=== PATIENT | male | born 1960 | race Caucasian/White ===

== ENCOUNTER → 2017-01-20 | Outpatient (CLI) | payer BC ==
[2017-01-20 20:44] LABS: ALBUMIN 4.2 GM/DL (3.2-5.2); ALBUMIN/GLOBULIN RATIO 1.35 (1.00-1.93); ALKALINE PHOSPHATASE 101 U/L (45-117); ALT/SGPT 31 U/L (12-78); ANION GAP 9 MEQ/L (8-16); AST/SGOT 14 U/L (15-37); BILIRUBIN,TOTAL 0.4 MG/DL (0.2-1.0); BLOOD UREA NITROGEN 21 MG/DL (7-18); CALCIUM LEVEL 8.6 MG/DL (8.5-10.1); CARBON DIOXIDE LEVEL 24 MEQ/L (21-32); CHLORIDE LEVEL 111 MEQ/L (98-107); CREATININE FOR GFR 1.21 MG/DL (0.70-1.30); GLOMERULAR FILTRATION RATE > 60.0 (>56); GLUCOSE, FASTING 84 MG/DL (70-105); SODIUM LEVEL 144 MEQ/L (136-145); TOTAL PROTEIN 7.3 GM/DL (6.4-8.2)
[2017-01-20 20:55] LABS: BASO % 0.5 % (0.0-1.0); EOS # 0.2 K/mm3 (0.0-0.50); LARGE UNSTAINED CELL # 0.1 K/mm3 (0.0-0.4); LARGE UNSTAINED CELL % 1.1 % (0.0-4.0); LYMPH # 2.1 K/mm3 (1.5-4.5); LYMPH % 26.9 % (24.0-44.0); MEAN CORPUSCULAR HEMOGLOBIN 29.9 pg (27.0-33.0); MEAN CORPUSCULAR HGB CONC 33.6 g/dl (32.0-36.5); MONO # 0.4 K/mm3 (0.0-0.8); MONO % 5.2 % (0.0-5.0); NEUTROPHILS # 4.9 K/mm3 (1.8-7.7); NEUTROPHILS % 64.3 % (36.0-66.0); PLATELET COUNT, AUTOMATED 260 k/mm3 (150-450); RED CELL DISTRIBUTION WIDTH 13.5 % (11.5-14.5); WHITE BLOOD COUNT 7.6 K/mm3 (4.0-10.0)
[2017-01-20 21:33] LABS: ERYTHROCYTE SEDIMENTATION RATE 2 mm/hr (0-20)
[2017-01-23 00:06] LABS: Lyme Disease IgG/IgM Antibodie <0.91 ISR (0.00-0.90); Lyme Disease IgM Ab Quantitati <0.80 index (0.00-0.79)
== END ==
LOC: M ADAMS 18:58
PROVIDERS: ATTEND Physician Assistant
DX: R53.83 Other fatigue (principal)

== ENCOUNTER → 2019-03-07 | Outpatient (CLI) | payer BC ==
[~2019-03-07] MED LIST: ACET650S3 PO; ASPI81CH33 PO; IBUP200C25 PO
[2019-03-07 12:52] LABS: HEMATOCRIT 43.5 % (42.0-52.0); HEMOGLOBIN 14.8 g/dl (13.5-17.5); MEAN CORPUSCULAR HEMOGLOBIN 30.6 pg (27.0-33.0); MEAN CORPUSCULAR VOLUME 89.9 fl (80.0-96.0); PLATELET COUNT, AUTOMATED 279 10^3/uL (150-450); RED BLOOD COUNT 4.84 10^6/uL (4.30-6.10); WHITE BLOOD COUNT 6.1 10^3/uL (4.0-10.0)
[2019-03-07 13:03] LABS: INR 1.1; PROTHROMBIN TIME 13.9 SECONDS (11.8-14.0)
[2019-03-07 13:12] LABS: ALBUMIN 4.2 GM/DL (3.2-5.2); ALT/SGPT 17 U/L (12-78); BILIRUBIN,TOTAL 0.8 MG/DL (0.2-1.0); BLOOD UREA NITROGEN 23 MG/DL (7-18); CALCIUM LEVEL 9.5 MG/DL (8.5-10.1); CARBON DIOXIDE LEVEL 28 MEQ/L (21-32); CHLORIDE LEVEL 105 MEQ/L (98-107); GLOMERULAR FILTRATION RATE > 60.0 (>56); GLUCOSE, FASTING 79 MG/DL (70-100); POTASSIUM SERUM 4.9 MEQ/L (3.5-5.1); SODIUM LEVEL 140 MEQ/L (136-145); TOTAL PROTEIN 7.3 GM/DL (6.4-8.2)
[2019-03-07 13:32] LABS: ERYTHROCYTE SEDIMENTATION RATE 4 mm/hr (0-20)
--- NOTE | 2019-03-08 05:36 | REP ---
Clinical: Preoperative assessment . Comparison: none . Technique: PA and lateral. Findings: The mediastinum and cardiac silhouette are normal. The lung mejia are clear and without acute consolidation, effusion, or pneumothorax. The skeletal structures are intact and normal. Impression: 1. No acute cardiopulmonary process. Electronically Signed by Reg Lopez MD 03/08/2019 05:27 A
--- NOTE | 2019-03-08 06:05 | ECGEPIP ---
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
== END ==
LOC: M LAB 10:34
PROVIDERS: ATTEND Internal Medicine
DX: Z01.818 Encounter for other preprocedural examination (principal); M16.11 Unilateral primary osteoarthritis, right hip

== ENCOUNTER 2019-03-17 07:05 | Inpatient (IN) | payer BC ==
--- NOTE | 2019-03-14 16:03 | HPE ---
DATE OF ANTICIPATED ADMISSION: 03/17/2019 ATTENDING PHYSICIAN: Dr. Jasper Vasquez CHIEF COMPLAINT: Right hip pain and stiffness. HISTORY: This is a pleasant, 59-year-old male patient with progressively worsening right hip pain and stiffness who has failed conservative treatment and has continued pain with weightbearing that affect his activities of daily living. He has consented for a right total hip arthroplasty by Dr. Vasquez. ALLERGIES: NO KNOWN DRUG ALLERGIES. CURRENT MEDICATIONS: None. PAST MEDICAL HISTORY: None. FAMILY HISTORY: Noncontributory. SOCIAL HISTORY: The patient is a nonsmoker and does not use alcohol. REVIEW OF SYSTEMS: He denies fever, chills, chest pain, shortness of breath, nausea, vomiting, diarrhea. Denies any recent upper respiratory or urinary tract infection symptoms. Reports pain in the right hip with weightbearing activities. PHYSICAL EXAM: Vitals today: Height 5, 11, weight 200, temperature 97.6, blood pressure 140/60, heart rate 64, respiration rate 16. He is normocephalic, atraumatic. Lungs are clear to auscultation bilaterally with no wheezes, rales, rhonchi. S1 and S2 auscultated. Neck is supple and nontender with no lymphadenopathy or jugular venous distention (JVD). Right hip shows overlying skin is intact with no rashes, erythema, ecchymosis. He has pain with internal, external rotation of the extremes, some slight decrease in range of motion. The right lower extremity is well perfused and neurovascular status is intact. LAB RESULTS: PT 13.9, INR 1.1. BUN 23, creatinine 1.3. White count 6.1, red count 4.84. Sedimentation rate 4. EKG: Sinus bradycardia, normal EKG. Chest x-ray with no acute cardiopulmonary process. The patient reports clearance and medical optimization by Dr. Weir. This is not available today on the chart but will be obtained by the office. IMPRESSION: Right hip symptomatic degenerative joint disease. PLAN: Consented for right total hip arthroplasty by Dr. Vasquez.
[~2019-03-17] VITALS: Ht 177.8 cm; Wt 94.4 kg
[2019-03-17] VITALS (7 sets, daily range): BP systolic 82–110; BP diastolic 58–72
[~2019-03-17 07:05] MED LIST changes: +LIDOCAINE 1% MDV 20ML VIAL SQ PRN; +LR 1,000 ML IV ONE; +ceFAZolin SOD 2 GM in IV 1 EA IV ONE
[2019-03-17] MEDS ORDERED: ACETAMINOPHEN 500 MG TAB As Ordered ONE (07:36)
[2019-03-17] MEDS ORDERED: ACETAMINOPHEN 500 MG TAB PO ONE (07:45)
[2019-03-17] MEDS ORDERED: MIDAZOLAM INJ 2 MG/2 ML VIAL (J2250) As Ordered ONE ×2 (08:36→10:20)
[2019-03-17] MEDS ORDERED: PROPOFOL 500 MG/50 ML VIAL As Ordered ONE (08:36)
[2019-03-17] MEDS ORDERED: fentaNYL 100 MCG/2 ML INJECTION (J3010) As Ordered ONE (08:37)
[2019-03-17] MEDS ORDERED: dexameTHASONE 4 MG/ML 1ML VIAL (J1100) As Ordered ONE ×2 (08:37→10:51)
[2019-03-17] MEDS ORDERED: ONDANSETRON 4MG/2ML VIAL (J2405) As Ordered ONE (08:37)
[2019-03-17] MEDS ORDERED: LIDOCAINE 2% INJ 100 MG/5 ML SDV (FOR ANES.) As Ordered ONE (08:37)
[2019-03-17] MEDS ORDERED: EPINEPHrine INJ 1 MG/ML 1ML AMP As Ordered ONE (09:49)
[2019-03-17] MEDS ORDERED: ceFAZolin 1GM INJ (J0690 PER 500MG) As Ordered ONE (09:49)
[2019-03-17] MEDS ORDERED: PHENYLephrine HCL 500 MCG/5 ML (100MCG/ML) SYRINGE (J2370) As Ordered ONE (11:06)
[2019-03-17] MEDS ORDERED: ePHEDrine SULFATE 25 MG/5 ML(5MG/ML) SYRINGE As Ordered ONE (11:10)
[2019-03-17] MEDS ORDERED: PROPOFOL 200 MG/20 ML VIAL As Ordered ONE (11:55)
[2019-03-17] MEDS ORDERED: LR 1,000 ML IV SCH ×2 (13:00→13:15)
[2019-03-17] MEDS ORDERED: HYDROMORPHONE HCL 0.5 MG/ 0.5 ML SYRINGE (J1170 PER 1) IV PRN ×3 (13:00→13:15)
[2019-03-17] MEDS ORDERED: PERCOCET 5MG/325MG TAB PO PRN ×2 (13:00→15:45)
[2019-03-17] MEDS ORDERED: fentaNYL 100 MCG/2 ML INJECTION (J3010) IV PRN (13:00)
[2019-03-17] MEDS ORDERED: ONDANSETRON 4MG/2ML VIAL (J2405) IV PRN (13:00)
[2019-03-17] MEDS ORDERED: FLEET ENEMA PR PRN (13:15)
--- NOTE | 2019-03-17 13:45 | REP ---
RIGHT HIP, TWO VIEWS: Two views of the right hip performed. There is a total hip prosthesis in good position. Structures are well aligned. Metallic skin ely are seen laterally. Electronically Signed by Lai Rodriguez MD 03/20/2019 02:54 P
[2019-03-17] MEDS: ceFAZolin SOD 2 GM in IV 1 EA IV SCH ×2 (16:07→22:19)
[2019-03-17] MEDS: PERCOCET 5MG/325MG TAB PO PRN (18:56)
[2019-03-17] MEDS ORDERED: NS 1,000 ML IV ONE (23:45)
[2019-03-18] VITALS (14 sets, daily range): BP systolic 76–130; BP diastolic 45–77
[2019-03-18] MEDS: ACETAMINOPHEN TAB 650MG DOSE (2X325MG) PO PRN ×4 (01:02→21:22)
[2019-03-18] MEDS: PERCOCET 5MG/325MG TAB PO PRN (02:39)
[2019-03-18] MEDS: ceFAZolin SOD 2 GM in IV 1 EA IV SCH (05:29)
[2019-03-18] MEDS ORDERED: XARE10TA PO (06:57)
[2019-03-18] MEDS ORDERED: PERC5TAB12 PO (06:57)
[2019-03-18 07:04] LABS: HEMATOCRIT 36.2 % (42.0-52.0); HEMOGLOBIN 12.5 g/dl (13.5-17.5); MEAN CORPUSCULAR HEMOGLOBIN 30.6 pg (27.0-33.0); MEAN CORPUSCULAR HGB CONC 34.5 g/dl (32.0-36.5); MEAN CORPUSCULAR VOLUME 88.5 fl (80.0-96.0); PLATELET COUNT, AUTOMATED 226 10^3/uL (150-450); RED BLOOD COUNT 4.09 10^6/uL (4.30-6.10); WHITE BLOOD COUNT 9.8 10^3/uL (4.0-10.0)
[2019-03-18 07:17] LABS: BLOOD UREA NITROGEN 22 MG/DL (7-18); CALCIUM LEVEL 8.1 MG/DL (8.5-10.1); CARBON DIOXIDE LEVEL 25 MEQ/L (21-32); CHLORIDE LEVEL 107 MEQ/L (98-107); CREATININE FOR GFR 1.27 MG/DL (0.70-1.30); GLOMERULAR FILTRATION RATE > 60.0 (>56); GLUCOSE, FASTING 139 MG/DL (70-100); POTASSIUM SERUM 3.7 MEQ/L (3.5-5.1); SODIUM LEVEL 140 MEQ/L (136-145)
[2019-03-18 07:18] LABS: INR 1.24; PROTHROMBIN TIME 15.4 SECONDS (11.8-14.0)
[2019-03-18] MEDS: MOM 30ML SUSPENSION UDC PO SCH (07:50)
[2019-03-18] MEDS: MIRALAX *UNIT DOSE* 17GM PACKET PO SCH (07:51)
[2019-03-18] MEDS: SENOKOT S TAB PO SCH ×2 (07:51→20:12)
[2019-03-18] MEDS ORDERED: LR 500 ML IV ONE (09:30)
--- NOTE | 2019-03-18 09:45 | RO ---
DATE OF PROCEDURE: 03/17/2019 PREOPERATIVE DIAGNOSIS: Right hip degenerative arthritis. POSTOPERATIVE DIAGNOSIS: Right hip degenerative arthritis. PROCEDURE: Right total hip arthroplasty using a size 60 Gription cup with a 40 mm polyethylene liner, 40 mm x 1.5 length neck ceramic and a standard offset size #8 [place] stem. SURGEON: Eliezer Vasquez MD ELECTRONIC SECURITY TECHNICIAN: Mr. Huey Connelly. ANESTHESIA: Spinal. COMPLICATIONS: None. SPECIMENS: Femoral head. ESTIMATED BLOOD LOSS: 200 mL. PROCEDURE: After antibiotics were given intravenously preoperatively and a successful spinal anesthetic was induced, he was placed in a lateral decubitus position, right hip upper most. The [place] hip positioner was utilized, down leg well padded especially the peroneal nerve, axillary roll utilized. The right hip area was then carefully prepped and draped in the usual sterile fashion. After appropriate time out, a longitudinal lateral incision was made for a standard direct lateral approach to the hip. Bovie cautery was used to coagulate crossing vessels. We then split the tensor fascia, lining with skin incision, divided the gluteus medius, anterior one-third and posterior two-third junction, and carefully dissected down to the gluteus minimus and anterior hip capsule and carefully dissected the soft tissues off the greater trochanter anteriorly and then dislocated the hip and placed the leg in a leg bag anteriorly. A starter reamer was placed in the piriformis fossa followed by the canal finding reamer, then the lateralizing reamer, then we reamed up to a size #8 eventually. Box osteotome used to the version to align with what we thought to be anatomic for him. There was some retrovision of the femoral neck. We then broached up to a size #8. Calcar planar was utilized. We then exposed the acetabulum, performed a labral excision 360 degrees, began reaming beginning at 50 and advanced to a size 59. 60 trial was placed using extramedullary alignment jig. He had good fixation at size 60 and thus I called for the real Gription cup, copiously irrigated out the acetabulum and placed the real cup using the extramedullary alignment jig to help align our version and abduction. The central hole eliminator was placed, we irrigated and placed the real polyethylene. We then placed the #8 broach size with a 1.5 x 40 mm head and the hip reduced nicely and it was very stable. There was minimal if any telescoping and he was very stable to flexion, internal rotation and extension external rotation so I did not feel we needed to alter our components at this point, thus I removed the trial broach and then copiously pulsatile, lavage, irrigated out the femoral canal, placed the real #8 [place] standard offset stem, dried the trunnion and placed the 40 mm ceramic ball onto the stem and then reduced the hip after irrigating. We then began closing the capsule anatomically with interrupted #1 PDS sutures, closed the gluteus minimus and gluteus medius back anatomically with interrupted #1 PDS sutures, irrigating between layers, closed the tensor fascia with a combination of #1 PDS sutures and a running #1 STRATAFIX. The subdermal tissues were closed with interrupted #2-0 PDS sutures, skin was closed with ely, covered by an Optifoam and dry sterile bulky dressing. He was then turned supine and transferred to the recovery room in stable condition. There were no intraoperative complications. Mr. Huey Connelly was critical to the success of this difficult surgery by helping with soft tissue retraction, help dislocate and relocate the hip several times throughout the operation, help to close the wound, help to prepare the patient, help to position the patient, amongst many other tasks that allowed me to perform the operation smoothly, efficiently and safely.
[2019-03-18] MEDS ORDERED: LR 1,000 ML IV ONE (10:15)
[2019-03-18] MEDS ORDERED: D5W/LR 1,000 ML IV SCH (10:30)
[2019-03-18] MEDS ORDERED: ISOVUE-370 76% 100ML VIAL (Q9967) As Ordered ONE (11:16)
--- NOTE | 2019-03-18 11:17 | REP ---
Portable chest, 10:37 a.m., single AP view with the patient semi upright: Comparison is the PA and lateral chest of 03/07/2019. The lung mejia are clear. The cardiac size is normal. The weston, mediastinum, and skeletal structures are unremarkable. Impression: Negative portable chest. There is no interval change. Electronically Signed by Lai Rasheed MD 03/18/2019 11:08 A
[2019-03-18 11:19] LABS: CK-MB VALUE MASS 4.3 NG/ML (<3.6); CPK CREATINE PHOSPHOKINASE 322 U/L (39-308); MB/CK RELATIVE INDEX 1.34 (< OR =4); TROPONIN I < 0.02 NG/ML (< 0.10)
[2019-03-18 11:33] LABS: C REACTIVE PROTEIN QUANTITATIV 1.68 MG/DL (0.00-0.30); CHOLESTEROL RISK RATIO 4.368 (<5); THYROID STIMULATING HORMONE 1.72 uIU/ML (0.358-3.740)
--- NOTE | 2019-03-18 12:18 | REP ---
CT of the chest with IV contrast, CT pulmonary angiography: Comparison is the portable plain film study earlier today. There are no emboli in the pulmonary trunk or central pulmonary arteries. There are no emboli in the pulmonary artery lobe or segment branches. There are no infiltrates. There are no pleural effusions. There is dependent atelectasis in the posterior lung mejia with the patient supine on the scanning table. There is no mediastinal, hilar or axillary lymphadenopathy. 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 The thoracic aorta is unremarkable. Cardiac size is normal. There is no pericardial effusion. The visualized upper abdominal structures are unremarkable. Impression: There are no pulmonary emboli. There are no infiltrates or pleural effusions. There are no masses or nodules. There is no adenopathy. An accessory left-sided vena cava is identified as an anatomic variant. Electronically Signed by Lai Rasheed MD 03/18/2019 12:08 P
[2019-03-18 12:38] LABS: HEMOGLOBIN A1c 5.2 %
--- NOTE | 2019-03-18 15:08 | CR ---
DATE OF CONSULTATION: 03/18/2019 REFERRING PHYSICIAN: Orthopedic surgery. REASON FOR CONSULTATION: Hypotension and bradycardia. HISTORY OF PRESENT ILLNESS: This is a 59-year-old male with no past medical history aside from osteoarthritis who presented for right hip elective arthroplasty. Was placed on intravenous (IV) Dilaudid overnight for pain control and developed hypotension with systolic pressure of 76 and complaints of diaphoresis. Patient had three episodes into the night. Was given lactated Ringer boluses with subsequent improvement. Patient was afebrile on routine vital sign check. He was also noted to be bradycardic with heart rate of 45-48, asymptomatic. He denied any chest pain, pressure, or tightness, lightheadedness or dizziness. No fever, chills, or cough. Patient denies dysuria, urgency, frequency. Denies any rigors, earache, sore throat, nasal discharge, or congestion. 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 Carries about 60-80 pounds on a daily basis. Recently went on a canoe trip and camping with his son on a 50-mile trip with no shortness of breath, chest pain, pressure, or tightness. No prior history of coronary artery disease. PAST MEDICAL HISTORY: Osteoarthritis. PAST SURGICAL HISTORY: 1. Abdominal surgery in 1990. 2. Recent right hip replacement 03/17/2019. HOME MEDICATIONS: None. HOSPITAL MEDICATIONS: Dilaudid has been discontinued, MiraLax, milk of magnesia, Senokot, Xarelto, Percocet one to two tablets, Fleet enema, acetaminophen. ALLERGIES: No known drug allergies. FAMILY HISTORY: Mother , age 83, coronary artery disease (CAD), coronary artery bypass graft (CABG). Father , age 98, CAD. Brother alive, age 60, hypertension, bariatric surgery, weight loss of 390 pounds to 280 pounds. 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 Occasional beer, very rarely, one or two. Tried smoking as a teenager. Never smoked since. REVIEW OF SYSTEMS: Per history of present illness (HPI). A 12-point system otherwise negative. PHYSICAL EXAMINATION: VITAL SIGNS: Temperature 97.8, pulse 45-74, sinus rhythm, respiratory rate 16, previous blood pressure was 76/45, current blood pressure is 115/64. GENERAL: Patient is awake, alert, oriented times three. No pallor. No icterus. No cyanosis. Answering questions appropriately. No conversational dyspnea. Face is symmetric. LUNGS: Clear to auscultation. No wheezes, rales, or rhonchi. HEART: S1, S2, sinus bradycardia. No murmurs, rubs, or gallops. ABDOMEN: Soft, nontender, nondistended. Positive bowel sounds. No hepatosplenomegaly. Postoperative right hip. EXTREMITIES: No clubbing, cyanosis, or pitting edema. Skin color is pink, warm to touch, dry. White count 9.8, hemoglobin 12, hematocrit 36, platelet count 226. Sodium 140, potassium 3.7, chloride 107, bicarbonate 25, BUN 22, creatinine 1.27, glucose 139, calcium 8.1. Troponin less than 0.02. Lactic acid 1.9. A1c is pending. CRP is 1.68. Triglycerides 79, LDL 112. TSH of 1.72. Blood culture is pending. Chest x-ray: Negative portable chest. ASSESSMENT AND PLAN: A 59-year-old male admitted for elective right hip arthroplasty due to osteoarthritis. Developed postoperative hypotension, most likely secondary to intravenous (IV) opioids, particularly Dilaudid. CURRENT ISSUES: 1. Hypotension, most likely secondary to IV opioid use with Dilaudid. This has been discontinued. Patient has responded well to IV fluids. No fever. 2. Due to complaints of diaphoresis and family history of heart disease, patient has been transferred to telemetry unit for arrhythmia monitoring and ruling out acute coronary syndrome. Patient has negative troponins. EKG has no ST-T changes. Thyroid levels are within normal. If patient responds to IV fluids, he may be discharged in the morning. CT chest to rule out pulmonary embolism (PE). If negative, no other followup is needed. 3. Bradycardia, asymptomatic at this time. Patient is very fit and athletic at baseline. Thyroid levels are within normal. Will check Lyme disease, as he does quite a bit of outdoor activity, to rule out Lyme disease. Echocardiogram if persistent or symptomatic. Possible discharge in the morning if negative workup. 4. Right hip arthroplasty. Postoperative management per primary team. Avoid IV opioids. MTDD
--- NOTE | 2019-03-18 16:11 | ECGEPIP ---
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 Clinical correlation advised Electronically Signed on 03-18-2019 16:11:44 EDT by Edvin Velarde
[2019-03-18] MEDS ORDERED: RIVAROXABAN 10 MG TAB (XARELTO) PO SCH (18:00)
[2019-03-18] MEDS ORDERED: SLF 3 ML SYR IV PRN (18:45)
[2019-03-18] MEDS: SLF 3 ML SYR IV SCH (20:13)
[2019-03-19] MEDS: ACETAMINOPHEN TAB 650MG DOSE (2X325MG) PO PRN ×2 (02:22→08:04)
[2019-03-19 04:00] VITALS: BP 132/75
[2019-03-19] MEDS: SLF 3 ML SYR IV SCH (05:33)
[2019-03-19 06:15] LABS: HEMATOCRIT 35.6 % (42.0-52.0); MEAN CORPUSCULAR HEMOGLOBIN 29.9 pg (27.0-33.0); MEAN CORPUSCULAR HGB CONC 33.7 g/dl (32.0-36.5); MEAN CORPUSCULAR VOLUME 88.6 fl (80.0-96.0); PLATELET COUNT, AUTOMATED 213 10^3/uL (150-450); RED BLOOD COUNT 4.02 10^6/uL (4.30-6.10); WHITE BLOOD COUNT 10.2 10^3/uL (4.0-10.0)
[2019-03-19 06:31] LABS: BLOOD UREA NITROGEN 13 MG/DL (7-18); CALCIUM LEVEL 8.3 MG/DL (8.5-10.1); CARBON DIOXIDE LEVEL 28 MEQ/L (21-32); CHLORIDE LEVEL 107 MEQ/L (98-107); CREATININE FOR GFR 1.03 MG/DL (0.70-1.30); GLOMERULAR FILTRATION RATE > 60.0 (>56); GLUCOSE, FASTING 104 MG/DL (70-100); POTASSIUM SERUM 3.8 MEQ/L (3.5-5.1); SODIUM LEVEL 140 MEQ/L (136-145)
[2019-03-19] MEDS ORDERED: XARE10TA PO (06:33)
[2019-03-19 08:00] VITALS: BP 122/78
[2019-03-19] MEDS: SENOKOT S TAB PO SCH (08:04)
--- NOTE | 2019-03-19 08:30 | ECHO ---
DATE OF PROCEDURE: 03/18/2019 AGE: 59 GENDER: Male REFERRING PHYSICIAN: Dr. Kina Newman. HEIGHT: 70 inches. WEIGHT: 202 pounds. BODY SURFACE AREA: 2.1 sq m. INPATIENT: PCU Room 3212 INDICATION: Bradycardia. MEASUREMENTS: 2D MEASUREMENTS: RV - 4.3 cm LV- 5.5 cm Septum - 1.2 cm Posterior wall - 1.2 cm Aortic root: 4.2 cm LA - 3.9 cm LVEF - 70% DOPPLER MEASUREMENTS: AV - 1.5 m/s LVOT - 1.1 m/s LVOT diameter - 2.4 cm MV-E: 56 A: 68 EA ratio 0.8 Early mitral deacceleration time - 176 ms PV - 0.9 m/s Pulmonary artery acceleration time - 120 ms RVSP - 35 mmHg IVC - 1.8 cm COMMENTS: Sinus bradycardia without intraventricular conduction disturbance. M-mode and two-dimensional echocardiography was performed with pulsed, continuous wave, and color flow Doppler studies. Left ventricle upper limits of normal in size with borderline symmetrical hypertrophy and hyperkinetic wall motion. Borderline left atrial enlargement with impairment of LV diastolic function. Borderline right heart chamber enlargement with normal wall motion and Doppler evidence of mild pulmonary hypertension. Normal IVC size and collapse against an elevated central venous pressure. Mildly dilated aortic root but normal proximal ascending aorta. Normal appearing and functioning valvular structures. No apparent intracardiac mass or pericardial effusion.
[2019-03-19] MEDS: MOM 30ML SUSPENSION UDC PO SCH (09:00)
[2019-03-19] MEDS: MIRALAX *UNIT DOSE* 17GM PACKET PO SCH (09:00)
--- NOTE | 2019-03-19 11:43 | IPN ---
DATE: 03/19/2019 SUBJECTIVE: The patient denies any lightheadedness, dizziness. Telemetry shows sinus rhythm, ventricular rate of 61 to 77. Echocardiogram, CT chest negative. Patient has passed a home safety evaluation, medically stable for discharge home. No complaints of chest pain, pressure, tightness, lightheadedness, dizziness, shortness of breath, nausea, vomiting, or epigastric pain. PHYSICAL EXAMINATION: Temperature 98.2, pulse 77, respiratory rate 20, blood pressure 122/78, 97% on room air. Generally, patient is awake, alert, oriented times three, answering questions appropriately. Lungs are clear to auscultation. No wheezing, rales or rhonchi. Heart: S1, S2, sinus rhythm. No murmurs, rubs, or gallops. Abdomen is soft, nontender, nondistended. Positive bowel sounds. Extremities: No cyanosis, clubbing or pitting edema. Patient is postop right hip with postop changes. Skin: Warm, dry, well perfused, pink in color. LABORATORY DATA: White count 10.2, hemoglobin 12, hematocrit 35, platelet count 213. Sodium 140, potassium 3.8, chloride 107, bicarbonate 28, BUN 13, creatinine 1, glucose of 104, calcium of 8.3, total CK of 322, MB fraction 4.3, troponin less than 0.02. Microbiology: Blood culture negative. CT chest: No pulmonary embolism (PE). Echo: Normal ejection fraction. No valvular disease. ASSESSMENT AND PLAN: A 59-year-old male, presented for elective right hip replacement, developed postop hypotension and bradycardia, most likely secondary to Dilaudid. The patient was worked up for possible PE, which was negative. Echo was normal. Lyme titer is still pending as the patient usually hikes and carries a canoe for up to 50 miles over the summer. With discontinuation of Dilaudid, the patient's hypotension resolved. No other signs of infection. Medically stable for hospital discharge. FABRICIO
== END 2019-03-19 11:19 | disposition home or self-care (01) | DRG 301 ==
LOC: M OR 07:05 → M MS5PR 15:09 → M PCU 03-18 14:10
PROVIDERS: ADMIT Orthopaedic Surgery; ATTEND Orthopaedic Surgery
PROC: 0SR904Z Replacement of Right Hip Joint with Ceramic on Polyethylene Synthetic Substitute, Open Approach (ICD-10-PCS; principal; 2019-03-17 09:40)
DX: M16.11 Unilateral primary osteoarthritis, right hip (principal); I95.89 Other hypotension; R00.1 Bradycardia, unspecified; T40.2X5A Adverse effect of other opioids, initial encounter; R26.89 Other abnormalities of gait and mobility

== ENCOUNTER 2019-05-10 11:01 | Day surgery (SDC) | payer BC ==
[~2019-05-10] VITALS: Ht 179.1 cm; Wt 90.7 kg
[~2019-05-10 11:01] MED LIST changes: -LIDOCAINE 1% MDV 20ML VIAL SQ PRN; -LR 1,000 ML IV ONE; +NS 1,000 ML IV ONE; +PERC5TAB12 PO; +XARE10TA PO; -ceFAZolin SOD 2 GM in IV 1 EA IV ONE
[2019-05-10] MEDS ORDERED: PROPOFOL 200 MG/20 ML VIAL As Ordered ONE ×2 (11:59→13:19)
[2019-05-10] MEDS ORDERED: LIDOCAINE 2% INJ 100 MG/5 ML SDV (FOR ANES.) As Ordered ONE (11:59)
--- NOTE | 2019-05-10 13:30 | ROOR ---
Patient Name: Balbir Cortes Procedure Date: 05/10/2019 1:10 PM Date of : 1960 Age: 59 Room: [facility] Gender: Male Note Status: Finalized Procedure: Total Colonoscopy to Cecum + ileoscopy Indications: Screening for colorectal malignant neoplasm Providers: Crispin Horn MD Referring MD: Rosalee Ocasio NP Requesting Provider: Medicines: Monitored Anesthesia Care Complications: No immediate complications. Procedure: Pre-Anesthesia Assessment: - The heart rate, respiratory rate, oxygen saturations, blood pressure, adequacy of pulmonary ventilation, and response to care were monitored throughout the procedure. The Colonoscope was introduced through the anus and advanced to the cecum, identified by appendiceal orifice and ileocecal valve. The colonoscopy was performed without difficulty. The patient tolerated the procedure well. The quality of the bowel preparation was excellent. Findings: The perianal and digital rectal examinations were normal. Non-bleeding internal hemorrhoids were found during retroflexion. The hemorrhoids were small and Grade I (internal hemorrhoids that do not prolapse). No other significant abnormalities were identified in a careful examination of the remainder of the colon. The terminal ileum appeared normal. The exam was otherwise without abnormality on direct and retroflexion views. Impression: - Non-bleeding internal hemorrhoids. - The examined portion of the ileum was normal. - The examination was otherwise normal on direct and retroflexion views. - No specimens collected. - The exam was otherwise normal to the cecum. Recommendation: - Patient has a contact number available for emergencies. The signs and symptoms of potential delayed complications were discussed with the patient. Return to normal activities tomorrow. Written discharge instructions were provided to the patient. - High fiber diet. - Discharge patient to home. - Repeat colonoscopy in 10 years for screening purposes. - Return to referring physician. - The findings and recommendations were discussed with the patient's family. Crispin Horn MD Crispin Horn MD 05/10/2019 1:29:25 PM Electronically signed by Crispin Horn MD Number of Addenda: 0 Note Initiated On: 05/10/2019 1:10 PM Estimated Blood Loss: Estimated blood loss: none.
[2019-05-10 13:45] VITALS: BP 135/84
== END 2019-05-10 13:53 | disposition home or self-care (01) ==
LOC: M OPP 11:01
PROVIDERS: ATTEND Internal Medicine Gastroenterology
DX: Z12.11 Encounter for screening for malignant neoplasm of colon (principal); K64.0 First degree hemorrhoids; Z88.5 Allergy status to narcotic agent

== ENCOUNTER → 2022-03-21 | Outpatient (CLI) | payer BC ==
[~2022-03-21] MED LIST changes: -NS 1,000 ML IV ONE
== END ==
LOC: M EKG 09:17
PROVIDERS: ATTEND Nurse Practitioner Adult Health
DX: R00.1 Bradycardia, unspecified (principal)

== ENCOUNTER → 2023-03-22 | Outpatient (CLI) | payer BC | LOC: M WUC 08:53 | PROVIDERS: ATTEND Nurse Practitioner Adult Health | DX: M25.572 Pain in left ankle and joints of left foot (principal) ==

== ENCOUNTER 2025-03-14 09:58 | Emergency (ER) | payer BC ==
[~2025-03-14] VITALS: Ht 182.9 cm; Wt 95.8 kg
[2025-03-14] MEDS ORDERED: ACET32TAB PO (10:08)
[2025-03-14] MEDS ORDERED: ROSU10TA61 PO (10:08)
[2025-03-14 10:40] LABS: BASO # 0.0 10^3/uL (0.0-0.2); BASO % 0.4 % (0.0-1.0); EOS # 0.0 10^3/uL (0.0-0.5); EOS % 0.2 % (0.0-3.0); LYMPH # 0.4 10^3/uL (1.5-5.0); LYMPH % 8.8 % (24.0-44.0); MONO # 0.1 10^3/uL (0.0-0.8); MONO % 1.9 % (2.0-8.0); NEUTROPHILS # 4.1 10^3/uL (1.5-8.5); NEUTROPHILS % 88.5 % (36.0-66.0); PLATELET COUNT, AUTOMATED 142 10^3/uL (150-450)
[2025-03-14] MEDS: ONDANSETRON 4MG 2ML VIAL IV ONE (10:43)
[2025-03-14] MEDS: KETOROLAC 30 MG/ML 1 ML VIAL IV ONE (10:43)
[2025-03-14 11:09] LABS: ALT/SGPT 21.0 U/L (7.0-40); AST/SGOT 26.0 U/L (<34); CALCIUM LEVEL 8.5 MG/DL (8.3-10.6); CARBON DIOXIDE LEVEL 21.0 MMOL/L (20-31); CHLORIDE LEVEL 105.0 MMOL/L (98-107); CREATININE FOR GFR 1.32 MG/DL (0.70-1.30); GLOMERULAR FILTRATION RATE 60.6 (>49); POTASSIUM SERUM 4.1 MMOL/L (3.5-5.1); SODIUM LEVEL 138.0 MMOL/L (136-145)
[2025-03-14] MEDS: NS (Normal Saline) 0.9% 1,000 ML IV ONE ×2 (11:30→12:17)
[2025-03-14 11:44] LABS: KETONE, URINE AUTO RFX NEGATIVE (NEGATIVE); LEUKOCYTE ESTERASE UR AUTO RFX NEGATIVE (NEGATIVE); MUCUS, URINE RFX SMALL (NEGATIVE); NITRITE, URINE AUTO RFX NEGATIVE (NEGATIVE); RBC, URINE AUTO RFX 2 /HPF (0-3); SQUAM EPITHELIAL CELL UR AURFX 0 /HPF (0-6); WBC, URINE AUTO RFX 1 /HPF (0-3)
[2025-03-14] MEDS: ACETAMINOPHEN 325 MG TAB PO ONE (12:16)
[2025-03-14] MEDS ORDERED: HOME MED LIST COMPLETE! XX SCH (12:20)
[2025-03-14 14:30] VITALS: BP 112/74
[2025-03-14 14:45] VITALS: O2SAT 93
[2025-03-14 14:53] VITALS: TEMP 99
== END 2025-03-14 15:08 | disposition home or self-care (01) ==
LOC: M ED 09:58
DX: E86.0 Dehydration (principal); B34.9 Viral infection, unspecified; Z88.5 Allergy status to narcotic agent; Z79.1 Long term (current) use of non-steroidal anti-inflammatories (NSAID); Z79.899 Other long term (current) drug therapy
CPT/HCPCS: 71046; 80053; 81001; 83605; 85025; 87040; 87486; 87581; 87633; 87798; 96361; 96374; 99284; J1885; J2405